=== PATIENT | female | born 1970 | race Caucasian/White ===

== ENCOUNTER 2018-12-26 06:07 | Observation (INO) ==
[~2018-12-26 06:07] MED LIST: LIDOCAINE W/ SODIUM BICARB 0.5 ML SYR ONE; LIDOCAINE W/ SODIUM BICARB 0.5 ML SYR SUBD ONE; Lactated Ringers 1,000 ML PRIMARY IV ONE; Nasal Sanitizer POPSWAB ampule 3 AMP (Nozin) PREOP DOSE ENOS SCH; Sodium Chloride 0.9% 250 ML ONE; Vancomycin Inj 1gm vial ONE; ceFAZolin Inj 2gm (Premix) 2 GM/50 ML BAG IV ONE
[2018-12-26] MEDS ORDERED: fentaNYL Inj 250 MCG/5 ML VIAL ONE (06:25)
[2018-12-26] MEDS ORDERED: MIDAZOLAM 5 MG/1 ML ONE (06:25)
[2018-12-26] MEDS ORDERED: KETAMINE HCL 100 MG/2 ML SYRINGE IV ONE (06:26)
[2018-12-26] MEDS ORDERED: ROCURONIUM 10 MG/1 ML - 5 ML VIAL IVP ONE (06:26)
[2018-12-26] MEDS ORDERED: Sodium Chloride 0.9% vial 20 ML ONE (06:45)
[2018-12-26] MEDS ORDERED: BUPIVACAINE 0.25% W/ EPI - 10 ML VIAL ONE (06:45)
[2018-12-26] MEDS ORDERED: BACITRACIN 50,000 UNIT VIAL IRRIG ONE (06:46)
[2018-12-26] MEDS ORDERED: REMIFENTANIL HCL 2 MG VIAL IV ONE ×2 (06:47→10:59)
[2018-12-26] MEDS ORDERED: REMIFENTANIL 1 MG/1 ML IV ONE (06:47)
[2018-12-26] MEDS ORDERED: fentaNYL Inj 100 MCG/2 ML VIAL IVP PRN (06:57)
[2018-12-26] MEDS ORDERED: ATROPINE SULFATE 0.4 MG/1 ML VIAL IVP PRN (06:57)
[2018-12-26] MEDS ORDERED: LIDOCAINE W/ SODIUM BICARB 0.5 ML SYR SUBD PRN (06:57)
[2018-12-26] MEDS ORDERED: Prochlorperazine Edisylate Inj 10mg/2ml vial IVP PRN (06:57)
[2018-12-26] MEDS ORDERED: ONDANSETRON 4 MG/2 ML VIAL IVP PRN ×2 (06:57→15:47)
[2018-12-26] MEDS ORDERED: Lactated Ringers 1,000 ML PRIMARY IV SCH (07:00)
[2018-12-26] MEDS ORDERED: DEXAMETHASONE PF 10 MG/1 ML VIAL ONE (07:48)
--- NOTE | 2018-12-26 10:40 | CRNA.PROGR ---
Anesthesia Time - Procedure/Recovery Time Start Date: 12/26/18 End Date: 12/26/18 Anesthesia : Time In: 07:32 Anesthesia : Time Out: 13:25 Anesthesia : Total Time: 353 - Total Anesthesia Time Total Anesthesia Time (minutes): 353 - Other Weight: 88.269 kg Height: 5 ft 2 in Body Mass Index (BMI): 35.6 Physical Status: P2 Anesthesia Type: General Anesthesia : ET (TIVA with NIMS monitoring.)
--- NOTE | 2018-12-26 10:40 | CRNA.PROGR ---
Anesthesia Recovery Phase I - Post Anesthesia Evaluation Patient's Condition on Arrival in Phase I: Stable Patient's Condition on Arrival in Phase II: Stable Pain Level: 7 (medicated for pain. Especially spasm type pain.)
--- NOTE | 2018-12-26 10:41 | CRNA.PROGR ---
Post Anesthesia Phase II - Post Anesthesia Phase II Patient Stable and Discharged To: Med/Surg Care Assumed By Surgeon: Jerrell Houser MD Temperature: 97.1 F Pulse Rate: 79 Respiratory Rate: 17 Blood Pressure: 123/85 Pulse Ox: 97 Total Leon Score at Discharge: 9 Post Anesthesia Discharge Criteria Met: Yes
[2018-12-26] MEDS ORDERED: TRANEXAMIC ACID 1,000 MG / 10 ML VIAL ONE (10:45)
[2018-12-26] MEDS ORDERED: Lactated Ringers 1,000 ML PRIMARY IV ONE ×2 (10:49→13:30)
[2018-12-26] MEDS ORDERED: HYDROmorphone 2 MG/1 ML ONE ×2 (13:33→13:41)
[2018-12-26] MEDS: HYDROmorphone 2 MG/1 ML IVP PRN ×4 (13:35→13:53)
[2018-12-26] MEDS: DIAZEPAM 10 MG/2 ML (5 MG/1 ML) CARPUJECT IVP PRN ×2 (13:42→13:55)
[2018-12-26] MEDS ORDERED: DIAZEPAM 10 MG/2 ML (5 MG/1 ML) CARPUJECT ONE (13:42)
[2018-12-26] MEDS ORDERED: LIDOCAINE HCL 2 % 10 ML JELLY URO-JECT TOPICAL PRN (14:29)
[2018-12-26] MEDS ORDERED: METOPROLOL TARTRATE 5 MG/5 ML VIAL ONE (14:58)
[2018-12-26] MEDS ORDERED: METOPROLOL TARTRATE 5 MG/5 ML VIAL IVP ONE ×2 (14:58)
[2018-12-26] MEDS: METOPROLOL TARTRATE 5 MG/5 ML VIAL IVP PRN ×3 (15:00→15:21)
[2018-12-26] MEDS ORDERED: MORPHINE SULFATE 2 MG/1 ML IVP PRN (15:47)
[2018-12-26] MEDS ORDERED: MAGNESIUM CITRATE 296 ML SOLUTION PO PRN (15:47)
[2018-12-26] MEDS ORDERED: Vancomycin-PHA to Dose IV SCH (15:47)
[2018-12-26] MEDS ORDERED: DOCUSATE 100 MG CAPSULE PO PRN (15:47)
[2018-12-26] MEDS ORDERED: ACETAMINOPHEN 325 MG TABLET PO PRN (15:47)
[2018-12-26] MEDS ORDERED: Fleet Enema 133ml RECTAL PRN (15:47)
[2018-12-26] MEDS ORDERED: DIAZEPAM 10 MG/2 ML (5 MG/1 ML) CARPUJECT IVP PRN (15:47)
[2018-12-26] MEDS ORDERED: MAGNESIUM 400 MG/5 ML - 30 ML (MILK OF MAGNESIA) PO PRN (15:47)
[2018-12-26] MEDS ORDERED: BISACODYL 5 MG TABLET PO PRN (15:47)
[2018-12-26] MEDS ORDERED: oxyCODONE/APAP 7.5/325 Tab 1 TAB TAB PO PRN (15:47)
[2018-12-26] MEDS ORDERED: oxyCODONE-ACETAMINOPHEN 5-325 TAB PO PRN (15:47)
[2018-12-26] MEDS ORDERED: MORPHINE SULFATE 4 MG/1 ML IVP PRN (15:47)
[2018-12-26] MEDS: ceFAZolin Inj 1 GM in Sodium Chloride 0.9% 100 ML IV SCH (16:35)
--- NOTE | 2018-12-26 18:05 | GEN.OPNOTE ---
Operative Note Surgery Date: 12/26/18 Preoperative Diagnosis: 1. Neck pain. 2. Bilateral upper extremity symptoms. 3. Multilevel cervical degenerative disc disease moderate C4-5, early advanced C5-6 and C6-7. 4. Multilevel cervical spondylosis mild to moderate in degree. 5. Small to moderate central C4-5 disc protrusion. 6. Prominent C5-6 disc protrusion producing moderate central canal and mild to moderate bilateral neural foraminal stenosis. 7. Prominent diffuse disc protrusion C6-7 with super imposed right paracentral herniated nucleus pulposus producing complete effacement of the CSF signal. anterior to the right hemicord with posterior displacement of the cord and impingement of the right ventral aspect of the cord with moderate bilateral. neural foraminal stenosis at this level. 8. Mild anterolisthesis C4 on C5 with mild kyphotic angulation at this level and a posterior osteophyte along the posterior superior C5 endplate. 9. Mild anterolisthesis of C5 and C6. Postoperative Diagnosis: 1. Neck pain. 2. Bilateral upper extremity symptoms. 3. Multilevel cervical degenerative disc disease moderate C4-5, early advanced C5-6 and C6-7. 4. Multilevel cervical spondylosis mild to moderate in degree. 5. Small to moderate central C4-5 disc protrusion. 6. Prominent C5-6 disc protrusion producing moderate central canal and mild to moderate bilateral neural foraminal stenosis. 7. Prominent diffuse disc protrusion C6-7 with super imposed right paracentral herniated nucleus pulposus producing complete effacement of the CSF signal. anterior to the right hemicord with posterior displacement of the cord and impingement of the right ventral aspect of the cord with moderate bilateral. neural foraminal stenosis at this level. 8. Mild anterolisthesis C4 on C5 with mild kyphotic angulation at this level and a posterior osteophyte along the posterior superior C5 endplate. 9. Mild anterolisthesis of C5 and C6. Procedure: 1.) Arthrodesis, anterior cervical, with discectomy, osteophytectomy, and foraminotomies bilaterally with removal of the posterior longitudinal ligament, and disc space preparation for fusion of the interspace, C4-5. (CPT code: 07916). 2.) Arthrodesis, anterior cervical, with discectomy, osteophyt ectomy and foraminotomies bilaterally with removal of the posterior longitudinal ligament with decompression of central canal and bilateral neuroforaminal stenosis and disc space preparation for fusion of the interspace, C5-6. (CPT code: 96305). 3.) Arthrodesis, anterior cervical, with discectomy, osteophytectomy and foraminotomies bilaterally with removal of the posterior longitudinal ligament with decompression of central canal and bilateral neuroforaminal stenosis and disc space preparation for fusion of the interspace, C6-7. (CPT code: 86870). 4.) Insertion of a 7mm x 14mm x 17mm 6-degree lordotic Exeter Tritanium C titanium anterior cervical cage filled in the center with Exeter BIO DBM Putty (allograft) into the C4-5 interspace for fusion of the C4-5 interspace. (CPT code: 42128). 5.) Insertion of a 7mm x 14mm x 17mm 6-degree lordotic Lauren Tritanium C titanium anterior cervical cage filled in the center with Exeter BIO DBM Putty (allograft) into the C5-6 interspace for fusion of the C5-6 interspace. (CPT code: 85314). 6.) Insertion of a 7mm x 14mm x 17mm 6-degree lordotic Exeter Tritanium C titanium anterior cervical cage filled in the center with Exeter BIO DBM Putty (allograft) into the C6-7 interspace for fusion of the C6-7 interspace. (CPT code: 47037). 7.) Anterior cervical plating, C4-7 using a 3 level, 8 hole, 48 mm Lauren Aviator titanium anterior cervical plate affixed to the C4 vertebral body with 4.0 mm x 16 mm variable angle titanium anterior cervical screws, to the C5 vertebral body using 4.0 mm x 14 mm variable angle titanium anterior cervical screws, to the C6 vertebral body using a 4.0 mm x 14 mm variable angle titanium anterior cervical screws, and to the C7 vertebral body using 4.0 mm x 16 mm fixed angle titanium anterior cervical screws. (CPT code: 06040). 8.) Use of 2.5cc of Lauren BIO DBM Putty (allograft) for filling of the anterior cervical cages (implanted allograft). (CPT code: 85756). 9.) Use of the operative microscope for the microsurgical techniques used for the C3-4, C4-5, and C5-6 discectomies and foraminotomies. (CPT code: 02201). 10.) Use of intra-operative fluoroscopy for location of the correct surgical levels and for confirmation of the final position of the intervertebral cages and final confirmation of the position of the anterior cervical hardware elements. 11.) Use of intra-operative neuromonitoring including EMG's, SSEP's, and MEP's. Surgeon: Jerrell Houser MD Social Work Supervisor: NEMESIO Jiménez Anesthesia Provider: Sahra Cornell CRNA Anesthesia Type: General Estimated Blood Loss (mL): 100 Fluids: See anesthesia record Pathology: None Indications: Ms. Benton is a very pleasant 48 year old woman who was referred to my practice by Gertrude Rudd for neck pain. Ms. Benton has neck pain and bilateral arm pain, especially in her elbows. Her arms feel weak and her hands go numb when writing. She has frequent headaches and a decreased range of motion in her neck. Ms. Benton had an MRI scan of the cervical spine demonstrating multilevel cervical degenerative disc disease moderate at C4-5, early advanced at C5-6 and C-7 and multilevel cervical spondylosis. The study demonstrated a small to moderate central C4-5 disc protrusion, a prominent C5-6 disc protrusion producing moderate central canal and mild to moderate bilateral neural foraminal stenosis, and a prominent diffuse disc protrusion C6-7 with super imposed right paracentral herniated nucleus pulposus producing complete effacement of the CSF signal anterior to the right hemicord with posterior displacement of the cord and impingement of the right ventral aspect of the cord with moderate bilateral neural foraminal stenosis at this level. The study demonstrated mild anterolisthesis C4 on C5 with mild kyphotic angulation at this level and a posterior osteophyte along the posterior superior C5 endplate and mild anterolisthesis of C5 and C6. Ms. Benton did not receive any benefit from non-operative therapies. We had discussed proceeding with a C4-5, C5-6, and C6-7 anterior cervical discectomy and fusion. She presents today for that surgical procedure. Findings: 1.) Diffuse disc/osteophyte complexes, C4-5, C5-6, C6-7. 2.) Central canal stenosis C5-6 and C6-7. 3.) Large right paracentral C6-7 herniated nucleus propulsis. Complications: None Operative Summary: Ms. Benton was met in the preoperative area. Her surgical history and physical in her chart was reviewed. We reviewed the procedure to be performed and we were in agreement on the procedure to be performed and this matched what was written on the patient's consent form. Any questions that Ms. Benton had were answered before he was taken back to the operating room suite. Mr. Benton was brought back to the operating room suite. She was moved over onto the surgical bed in supine position. General anesthesia was induced by the anesthesia staff and she was intubated. A Ash catheter was placed in her bladder for the procedure. She had pneumatic compression hose placed on her lower legs bilaterally. Her head was placed on a gel ring and rolled up surgical towels were placed in the intrascapular area and under her shoulders bilaterally. Her arms were gently tucked at her sides. All bony prominences were well padded. Her Ash catheter was checked to be free from kinks. Her pneumatic compression hose were attached to a pneumatic compression devise. The C-arm fluoroscopy unit was used to help localize the skin incision for the approach to the intended surgical level. The skin was marked along the medial border of the sternocleidomastoid muscle with a skin marker. Ms. Benton was prepped and draped in the usual and standard fashion. She was given 2 g of Ancef and a gram of vancomycin IV for perioperative antibiosis. She was given 10 mg of Decadron IV. A standard surgical timeout was performed identifying the correct patient, the correct procedure, and the correct equipment being available for the procedure. The intended skin incision was injected subcutaneously with quarter percent Marcaine with 1 in 200,000 epinephrine. The skin was incised with a 10 blade scalpel and all dermal and superficial bleeding points controlled with bipolar cautery. Dissection was continued down through the subcutaneous tissue to the level of the platysma muscle. The platysma muscle was incised with the Metzenbaum scissors in the direction of the skin incision. This allowed identification the medial border of the sternocleidomastoid muscle. Further dissection identified the omohyoid muscle which was circumferentially dissected out, tagged with two 0-Silk suture and then cut with a Metzenbaum scissors with the muscle stumps retracted with snaps attached to the sutures. Continued dissection was performed medial to the sternocleidomastoid muscle in both a sharp and blunt fashion down to the pre- vertebral fascia. The carotid artery was palpated to be lateral to the dissection plane. Cloward hand-held retractors were used to retract and protect the soft tissues while the prevertebral fascia was dissected with a Kitner instrument. Once a disc space became exposed a bent spinal needle was placed into the disc space and the level was localized as the C5-6 level with lateral fluoroscopy. Continued dissection of the prevertebral fascia was performed exposing the C4, C5, C6, and C7 vertebral bodies. The medial border of the longus coli muscle was dissected with Bovie cautery with insulated tip turned down to a low setting from C4-C7 bilaterally. The hand-held Cloward retractors were then replaced with the Marker Maker self-retaining retractor system which was first placed at the C4-5 level to expose this level and protect the soft tissues at this level. A 12 mm distraction pin was placed into the C4 vertebral body and another was placed into the C5 vertebral body. The operative microscope was brought into the surgical field and used for microsurgical techniques used for the C4-5 discectomy. An annulotomy was performed with a 15 blade scalpel and disc material was removed with a pituitary rongeur. Additional disc and cartilaginous endplate was loosened in the disc space using a small straight curette with the fragments being removed with a pituitary rongeur. The high-speed Connect Controls Thaddeus drill with a matchstick bit was used to perform arthrodesis/decortication of the C4 and C5 endplates preparing the endplates for fusion. The same drill with the same bit was used to drill away the prominent diffuse osteophytes along the posterior inferior aspect of the C4 vertebral body and the posterior superior aspect of C5 vertebral body as well as the uncovertebral joints bilaterally which were hypertrophied bilaterally. Foraminotomies were performed bilaterally with the same drill with same bit. A nerve hook was used to define the plane between the posterior longitudinal ligament and the dura. The posterior longitudinal ligament was completely removed with small Kerrison punches. The same instruments were used to extend the foraminotomies bilaterally that had been started with the high-speed drill with a matchstick bit. Excellent decompression of the spinal canal, neuroforamen, and exiting nerve roots was assured both by visual inspection as well as by palpation with a nerve hook underneath the vertebral bodies and out the neuroforamen bilaterally. The interspace was irrigated with bacitracin irrigation. FloSeal hemostatic agent was placed over all exposed dural elements. The interspace was sized the appropriate size anterior cervical cage. A 7 mm x 14 mm x 17 mm 6-degree lordotic Tritanium C titanium anterior cervical cage was selected and filled in the center with Lauren BIO DBM Putty (allograft) and then inserted into the C4-5 interspace with the certified novell administrator. The cage was gently countersunk with a bone tamp and mallet. The cage obtained good purchase between the C4 and C5 endplates. The final position of the cage was confirmed with lateral fluoroscopy. The C4 [place] distraction pin was removed and bony bleeding was controlled with FloSeal and a surgical lavon. The Marker Maker self-retaining retractor system was removed and placed across the C5-6 level for the exposure this level and the protection of the soft tissues at this level. The [place] distraction pin was placed into the C6 vertebral body. The operative microscope was used for this microsurgical techniques used for the C5-6 discectomy. An annulotomy was performed with a 15 blade scalpel and disc material was removed with a pituitary rongeur. Additional disc and cartilaginous endplate was loosened in the disc space using a small straight curette with the fragments being removed with a pituitary rongeur. The high- speed Connect Controls Thaddeus drill with a matchstick bit was used to perform arthrodesis/decortication of the C5 and C6 endplates preparing the endplates for fusion. The same drill with the same bit was used to drill away with diffuse, prominent osteophytes along the posterior inferior aspect of the C5 vertebral body and the posterior superior aspect of the C6 vertebral body as well as to drill away the uncovertebral joint hypertrophy bilaterally. The spinal cord was completely decompressed from the severe central canal stenosis at this level. Foraminotomies were performed bilaterally with the same drill with the same bit. A nerve hook was used to define the plane between the posterior longitudinal ligament and the dura. The posterior longitudinal ligament was completely removed with small Kerrison punches. The same instruments were used to extend the foraminotomies bilaterally that had been started with the high-speed drill with a matchstick bit. Excellent decompression of the spinal canal, neuroforamen, and exiting nerve roots was assured both by visual inspection as well as by palpation with a nerve hook underneath the vertebral bodies and out the neuroforamen bilaterally. The interspace was irrigated with bacitracin irrigation. FloSeal hemostatic agent was placed over all exposed dural elements. The interspace was sized the appropriate size anterior cervical cage. A 7 mm x 14 mm x 17 mm 6-degree Lauren Tritanium C titanium anterior cervical cage was selected and filled in the center with Lauren BIO DBM Putty (allograft) and then inserted into the C5-6 interspace with the certified novell administrator. The cage was gently countersunk with a bone tamp and mallet. The cage obtained good purchase between the C5 and C6 endplates. The final position of the cage was confirmed with lateral fluoroscopy. The C5 [place] distraction pin was removed and bony bleeding was controlled with FloSeal and a surgical lavon. The Marker Maker self-retaining retractor system was removed and placed across the C6-7 level for the exposure this level and the protection of the soft tissues at this level. The [place] distraction pin was placed into the C7 vertebral body. The operative microscope was used for this microsurgical techniques used for the C6-7 discectomy. An annulotomy was performed with a 15 blade scalpel and disc material was removed with a pituitary rongeur. The high-speed Connect Controls Thaddeus drill with a matchstick bit was used to perform arthrodesis/decortication of the C6 and C7 endplates preparing the endplates for fusion. The same drill bit were used to perform arthrodesis/decortication of the C6 and C7 endplates preparing the endplates for fusion. The same drill with the same bit was used to drill away with diffuse, very prominent osteophytes along the posterior inferior aspect of the C6 vertebral body and the posterior superior aspect of the C7 vertebral body as well as to drill away the uncovertebral joint hypertrophy bilaterally. The spinal cord was completely decompressed from the severe central canal stenosis at this level. Foraminotomies were performed bilaterally with the same drill with the same bit. A nerve hook was used to define the plane between the posterior longitudinal ligament and the dura. The posterior longitudinal ligament along with a right sided subligamentous disc hernniation was completely removed with small Kerrison punches. The same instruments were used to extend the foraminotomies bilaterally that had been started with the high-speed drill with a matchstick bit. Excellent decompression of the spinal canal, neuroforamen, and exiting nerve roots was assured both by visual inspection as well as by palpation with a nerve hook underneath the vertebral bodies and out the neuroforamen bilaterally. The interspace was irrigated with bacitracin irrigation. FloSeal hemostatic agent was placed over all exposed dural elements. The interspace was sized the appropriate size anterior cervical cage. A 7 mm x 14 mm x 17 mm 6-degree Exeter Tritanium C titanium anterior cervical cage was selected and filled in the center with Exeter BIO DBM Putty (allograft) and then inserted into the C6-7 interspace with the certified novell administrator. The cage was gently countersunk with a bone tamp and mallet. The cage obtained good purchase between the C6 and C7 endplates. The final position of the cage was confirmed with lateral fluoroscopy. The [place] distraction pins in the C6 and C7 vertebral bodies were removed. Bony bleeding was controlled FloSeal and surgical patties. The Marker Maker self- retaining retractor system was removed and placed in the center portion of the surgical dissection to provide the proper exposure needed for the instrumentation portion of the procedure. Any remaining C4, C5, C6, and C7 anterior osteophytes were removed with the large Le[place]ell rongeur as well as with the high speed drill with the matchstick bit. The appropriate size anterior cervical plate was selected both by visual inspection as well as by lateral fluoroscopy. A 3 level, 8 hole, 48 mm Exeter Aviator titanium anterior cervical plate was selected and affixed to the C4 vertebral body using 4.0 mm x 16 mm variable angle titanium anterior cervical screws, and to the C5 and C6 vertebral bodies using 4.0 mm x 14 mm variable angle titanium anterior cervical screws, and to the C7 vertebral body using 4.0 mm x 16 mm fixed angle titanium anterior cervical screws. All screws obtained good purchase in the vertebral body bone. The locking mechanism was then deployed at each level and visual inspection confirmed that the locking mechanism deployed across each of the screw heads at each level bilaterally. The Marker Maker self-retaining retractor system was removed from the surgical site. Final AP and lateral fluoroscopic images were obtained. The glover of the dissection plane were inspected for any bleeding points. Any identified were coagulated with bipolar cautery. The surgical site was copious ly irrigated with bacitracin irrigation allowing the irrigant to sit to again inspect for any bleeding points with none identified. A medium MARJORIE drain was placed into the surgical site. The closure portion of the procedure was begun. The omohyoid muscle was re-approximated by the 0-Silk suture attached to the muscle stumps. The platysmal muscle was reapproximated with 3-0 Vicryl suture in an interrupted fashion. The dermis and superficial subcutaneous tissue was reapproximated with 3-0 Vicryl suture in an inverted interrupted fashion. The final layer of closure was performed with 4-0 Monocryl in a running subcuticular fashion. The incision was cleansed with a bacitracin soaked sponge and dried with a sterile dry sponge. Steri-Strips were placed across the incision. The incision was dressed with a Covaderm dressing. The surgical drain was secured with suture. The drain site was dressed. All surgical drapes removed from Ms. Benton. She was carefully moved over onto the PACU stretcher. She was awoken and extubated by the anesthesia staff. She was taken to the recovery room in stable condition. All surgical counts reported as correct by the scrub and circulating personnel. A physicians property assistant, Ms. Karin Mcclure PA-C, assisted with the procedure including the exposure and closure portions of the procedure. She also provided irrigation and suctioning throughout the procedure.
--- NOTE | 2018-12-26 18:56 | PDOC ---
HPI - History of Present Illness Date of Service: 12/26/18 Time of Service: 18:49 Chief Complaint: Neck pain with right shoulder and arm pain History of Present Illness: This very pleasant 48-year-old female who's had long-standing neck pain with right shoulder and arm pain. She is complained about this for several years. She had an MRI scan that apparently showed some spinal stenosis in the cervical spine along with disc bulging. When I read the reports, she had several findings of spondylosis, neural foraminal stenosis, and bulging disks. She essentially had a cervical radiculopathy, with right-sided symptoms worse than left, but bilateral symptoms. She presented today for anterior cervical discectomy fusion with Dr. Houser. See his surgical notes regarding procedure performed. Postoperatively, the patient denies any chest pain, shortness breath, nausea or vomiting. She states that she is normally on some levothyroxine for hypothyroidism, Effexor and an anti-anxiety medication, and a sleep aid. She states postoperatively that her right arm is numb below the elbow but she is able to move it in all directions. I spoke with neurosurgery about that and the plan to continue some Decadron. History is obtained from the patient and review of the medical record. Past Medical History Medical History: 1. Depression with anxiety. 2. Hypothyroidism. 3. Insomnia. 4. Chronic neck pain Surgical History: 1. Carpal tunnel release. 2. Tubal ligation. 3. Status post hysterectomy Pertinent Family History: Significant for diabetes. Past Social History: Patient does not smoke or drink alcohol. . Has children. Is in [place], [place]. Tobacco Use: Former Smoker Do you dip or chew tobacco: No In the Past 12 Months, Have Used or Abuse Any of the Following Substance: None Alcohol Use: None Medication / Allergies Home Medications: Home Medications Medication Instructions Recorded Confirmed Type clonidine HCl 0.1 mg tablet 0.1 mg PO BID #60 tab 10/23/18 12/26/18 Rx venlafaxine ER 75 mg 75 mg PO QDAY #30 cap 10/23/18 12/26/18 Rx capsule,extended release 24 hr estradiol 2 mg (7.5 mcg/24 hour) 1 vag ring VAGINAL Q90D #1 ea 11/11/18 12/26/18 Rx vaginal ring eszopiclone 2 mg tablet 2 mg PO QHS #30 tab 11/11/18 12/26/18 Rx cyclobenzaprine 10 mg tablet 10 mg PO TID PRN #30 tab 12/02/18 12/26/18 Rx levothyroxine 50 mcg tablet 50 mcg PO QDAY #30 tab 12/24/18 12/26/18 Rx Allergies/Adverse Reactions: Allergies Allergy/AdvReac Type Severity Reaction Status Date / Time hydrocodone AdvReac Severe NAUSEA Verified 12/26/18 06:28 vortioxetine AdvReac Severe Other : Verified 12/26/18 06:28 [From Lindsey Shell] See Comment ZYTHROMAX Allergy Mild HIVES Uncoded 12/26/18 06:28 Review of Systems - Respiratory Respiratory: REPORTS: Negative System Review - Cardiovascular Cardiovascular: REPORTS: Negative System Review - Gastrointestinal Gastrointestinal / Abdominal: REPORTS: Negative System Review Exam - Vitals Vital Signs: Vital Signs Temperature 97 F Temperature Source Temporal Artery Scan Pulse Rate [Pulse Oximeter] 119 Pulse Rate 135 Respiratory Rate 18 Blood Pressure [Right Arm] 128/90 Blood Pressure 135/86 Pulse Ox 98 Oxygen Flow Rate 1 Oxygen Delivery Method Nasal Cannula Height 5 ft 2 in Weight 194 lb 9.6 oz - General General Appearance: No Acute Distress, Cooperative - Head Head Exam: Normal Inspection, Normocephalic, Atraumatic - Eye Eye Exam: POSITIVE: No Scleral Icterus - Neck Additional Neck Exam Details: Has has been collar in place. Bandage in place and drain is noted. Bandage is clean, dry, intact. - Respiratory Respiratory Exam: POSITIVE: Clear to Auscultation - Bilaterally, Breathing Non Labored - Cardiovascular Cardiovascular Exam: POSITIVE: No Murmur, No Clicks, No Gallops, No Rubs, Tachycardia, No JVD - GI/Abdominal GI/Abdominal Exam: POSITIVE: Normal Bowel Sounds, Non Tender, Non Distended, Soft - Extremities Extremities Exam: POSITIVE: No Edema Present - Neurological Neurological Exam: POSITIVE: Alert, Oriented x 3, No Facial Droop, Speech Intact / Clear, Moves All Extremities Equally Results - Labs Additional Lab Results: 02/19/12 10/23/18 12/22/18 10:11 12:07 13:39 WBC 9.64 Hgb 14.1 RDW 12.7 Plt Count 261 PT INR Sodium Potassium Chloride Carbon Dioxide Anion Gap BUN Creatinine Estimated GFR BUN/Creatinine Ratio Glucose Uric Acid 6.2 Calcium Total Bilirubin AST ALT Alkaline Phosphatase Total Protein Albumin Globulin Albumin/Globulin Ratio TSH 12/22/18 12/22/18 12/23/18 13:39 13:39 09:48 WBC Hgb RDW Plt Count PT 10.3 INR 1.01 Sodium 137 Potassium 4.5 Chloride 101 Carbon Dioxide 27 Anion Gap 9 BUN 17 Creatinine 0.7 Estimated GFR > 60 BUN/Creatinine Ratio 24.28 H Glucose 103 Uric Acid Calcium 9.5 Total Bilirubin 0.4 AST 48 H ALT 52 Alkaline Phosphatase 73 Total Protein 7.5 Albumin 4.3 Globulin 3.2 Albumin/Globulin Ratio 1.30 TSH 0.432 Assessment and Plan - Patient Problems (1) Hypothyroidism Current Visit: Yes Status: Chronic Code(s): E03.9 - Hypothyroidism, unspecified Qualifiers: Hypothyroidism type: acquired Qualified Code(s): E03.9 - Hypothyroidism, unspecified (2) Depression Current Visit: Yes Status: Chronic Code(s): F32.9 - Major depressive disorder, single episode, unspecified Qualifiers: Depression Type: major depressive disorder Major depression recurrence: recurrent Active/Remission status: in full remission Qualified Code(s): F33.42 - Major depressive disorder, recurrent, in full remission (3) Cervical radicular pain Current Visit: Yes Status: Acute Code(s): M54.12 - Radiculopathy, cervical r egion - Assessment / Plan Additional Assessment/Plan Details: At this point I would recommend continuing levothyroxine, Lunesta, Effexor and clonidine. I discussed the patient's complaint of right arm numbness with neurosurgery, and they will address. Thank you for this consult. He'll be our pleasure to assist in the care of this patient during the hospital stay. Her TSH noted on 12/22/2018 to be in normal range, low normal value, as per primary provider, Aleja Rudd, whom the patient can see in the next 6 weeks or so to review.
--- NOTE | 2018-12-26 18:58 | NEURO.PROG ---
Subjective Post Op Day: 0 Pain Management: PO Ash Catheter: Yes Diet: Regular Additional Details: Awake and alert on med/surg floor. Neck - flat/soft. Dressing - clean/dry/intact. Posterior neck/intrascapular pain. Right lower arm and right hand numb. 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 Easily raises arms to put hands on head bilaterally and straight up in the air over her head bilaterally. PLAN: 1.) Decadron 4 mg IV q6h x 3 doses. 2.) Continue post-operative antibiotics. 3.) Continue post-operative pain control. 4.) Mobilize. Objective : Data - Vital Signs Vital Signs and I&O: Vital Signs - Last Taken Temperature 97 F 12/26/18 18:21 Pulse Rate 119 H 12/26/18 18:21 Respiratory Rate 18 12/26/18 18:21 Blood Pressure 128/90 12/26/18 18:21 Pulse Ox 98 12/26/18 18:21 Intake and Output (24hr x 4 totals) 12/24/18 12/25/18 12/26/18 12/27/18 05:59 05:59 05:59 05:59 Intake Total 1999 / 1999 Output Total 976 / 976 Balance 1024 / 1024
[2018-12-26] MEDS: CloNIDine Tab 0.1 MG TABLET PO SCH (20:56)
[2018-12-26] MEDS ORDERED: ESZOPICLONE 2 MG PO SCH (21:00)
[2018-12-26] MEDS ORDERED: VENLAFAXINE XR 75 MG CAP PO SCH (21:00)
[2018-12-27] MEDS: ceFAZolin Inj 1 GM in Sodium Chloride 0.9% 100 ML IV SCH (00:51)
[2018-12-27] MEDS: oxyCODONE/APAP 10/325 Tab 1 EACH TAB PO PRN ×2 (00:52→08:54)
[2018-12-27 05:08] LABS: BASOPHILS # (AUTO) 0 10*3/UL; BASOPHILS % (AUTO) 0 % (0-1); EOSINOPHILS # (AUTO) 0 10*3/UL; EOSINOPHILS % (AUTO) 0 % (0-8); Hematocrit [HCT] 38.5 % (37.0-47.0); LYMPHOCYTES # (AUTO) 1.66 10*3/uL; MEAN CORPUSCULAR HEMOGLOBIN 29.1 PG (27-31); MEAN CORPUSCULAR HGB CONC 33.8 g/dL (33-37); MEAN CORPUSCULAR VOLUME 86.1 FL (81-99); MEAN PLATELET VOLUME 10.4 FL (7.4-12.2); MONOCYTES # (AUTO) 0.48 10*3/UL (0.3-0.8); MONOCYTES % (AUTO) 2.8 % (5-15); NEUTROPHILS # (AUTO) 14.72 10*3/UL; NEUTROPHILS % (AUTO) 87.2 % (50-80); RED BLOOD COUNT 4.47 10^6/uL (4.20-5.40)
[2018-12-27 05:24] LABS: BLOOD UREA NITROGEN 11 mg/dL (7-22)
[2018-12-27 05:26] LABS: PLATELET MORPHOLOGY COMMENT NORMAL MORPHOLOGY (NORM); RBC MORPHOLOGY COMMENT NORMAL MORPHOLOGY (NORM); WBC MORPHOLOGY COMMENT NORMAL MORPHOLOGY (NORM)
[2018-12-27] MEDS ORDERED: LEVOTHYROXINE 50 MCG TABLET PO SCH (05:30)
[2018-12-27] MEDS ORDERED: PANTOPRAZOLE 40 MG TABLET PO SCH (07:00)
--- NOTE | 2018-12-27 07:47 | NEURO.PROG ---
Subjective Post Op Day: 1 Pain Management: PO Ash Catheter: No Flatus: Yes Diet: Regular Ambulating: Yes Additional Details: Awake and alert. Neck - soft/flat. Incision - clean/dry/intact. Right arm and hand less numb, states feeling coming back. Full strength all major muscle groups of the upper extremities bilaterally including rn admit, biceps, triceps, and deltoids. Can easily raise arms and put hands on head (which she stated pre-operatively she could not do secondary to pain). WBC count - 16,000 (potentially partially due to demargination of the WBC's from steroids); sediment in urine; history of previous urinary tract infections. PLAN: 1.) Discharge to home. 2.) Discharge on course of prophylactic antibiotics for possible urinary tract infection. Objective : Data - Labs CBC and BMP: 12/27/18 04:31 12/27/18 04:31 - Vital Signs Vital Signs and I&O: Vital Signs - Last Taken Temperature 97.7 F 12/27/18 04:24 Pulse Rate 83 12/27/18 04:24 Respiratory Rate 20 12/27/18 07:33 Blood Pressure 122/64 12/27/18 04:24 Pulse Ox 95 12/27/18 04:29 Intake and Output (24hr x 4 totals) 12/25/18 12/26/18 12/27/18 12/28/18 05:59 05:59 05:59 05:59 Intake Total 3697 / 3697 Output Total 1016 / 1016 Balance 2681 / 2681
--- NOTE | 2018-12-27 08:21 | NEURO.PROG ---
Subjective Post Op Day: 1 Pain Management: PO Jarquin Catheter: No Diet: Regular Ambulating: Yes Additional Details: Velvet is awake and alert, moving all extremities. She has good bilateral arm strength and improving spinning bath patroller strength in the right hand. She states the numbness in her right hand is improving. She is afebrile. Her incision is dry and intact. Her hemovac drainage was 60ml in 12 hours and only minimal in the last 3 hour. Plan is to discontinue her drain. She wants to go home. Of note is her WBC of 16.89, which is possibly reflective of demargination from her Decadron. Her Preoperative urinalysis was negative, but given her history of UTIs and some particulate matter noted in her jarquin post operative, we will cover her with 5 days of Bactrim DS. I also told her to follow up with Dr. Houser or Dr. Live if any urinary tract symptoms persist in 5 days. She was given post op instructions regarding activity and incision care. She will follow up in Dr. Houser's office in 2 weeks. Objective : Data - Labs CBC and BMP: 12/27/18 04:31 12/27/18 04:31 - Vital Signs Vital Signs and I&O: Vital Signs - Last Taken Temperature 97.7 F 12/27/18 04:24 Pulse Rate 83 12/27/18 04:24 Respiratory Rate 20 12/27/18 07:33 Blood Pressure 122/64 12/27/18 04:24 Pulse Ox 95 12/27/18 04:29 Intake and Output (24hr x 4 totals) 12/25/18 12/26/18 12/27/18 12/28/18 05:59 05:59 05:59 05:59 Intake Total 3697 / 3697 Output Total 1016 / 1016 Balance 2681 / 2681
[2018-12-27 08:52] VITALS: BP 118/71; RESP 16; TEMP 97.8; O2SAT 97
[2018-12-27] MEDS: CloNIDine Tab 0.1 MG TABLET PO SCH (08:53)
[2018-12-27] MEDS ORDERED: VENLAFAXINE XR 75 MG CAP PO SCH (09:00)
[2018-12-27] MEDS ORDERED: SULFAMETHOXAZOLE/TRIMETHOPRIM 800/160 MG TABLET PO SCH (09:00)
--- NOTE | 2018-12-27 09:57 | CRNA.PROGR ---
Anesthesia Note - Progress Notes Anesthesia Progress Note: Up walking in hallway with PT this am. wearing neck brace. Reports hand is still numb. No nausea. Ash is out. Pain under control. She's cheerful and mentation is clear and apropriate. No apparent anesthetic difficulties.
--- NOTE | 2018-12-27 10:49 | DCSUMMARY ---
Hospitalization Summary Admit Date: 12/26/2018 Discharge Date: 12/27/18 Primary Diagnosis:: cervical radiculopathy status post surgery Hospital Course: This very pleasant 48-year-old female that had a cervical radiculopathy and she had surgery with Dr. Houser. See his notes regarding the procedure performed. Hospital service was consulted to address hypothyroidism amongst other medical issues. Home medications were resumed. The patient did very well from a pain control standpoint. She did have to go on Decadron as she had some numbness in her right arm but her numbness was resolving the next day and she had outstanding movement in her arms bilaterally with normal muscle strength. The neurosurgery team felt that she was stable to discharge home from their perspective, and from the hospitalist perspective I told the patient to resume her home medications. The neurosurgery team is going to empirically treat what they think might be a urinary tract infection. Assessment and Plan: 1. As per discharge assessments noted 2. Disposition: Patient is discharged home. 3. Condition on discharge, stable and improved. 4. Diet: regular diet 5. Activities: Resume activities and restrictions as per neurosurgery instructions 6. Follow-Up: 1. Primary care provider as necessary 2. Neurosurgery for surgery follow-up 7. Medications at the Time of Discharge: Home Medications Medication Instructions Recorded Confirmed Type clonidine HCl 0.1 mg tablet 0.1 mg PO BID #60 tab 10/23/18 12/26/18 Rx venlafaxine ER 75 mg 75 mg PO QDAY #30 cap 10/23/18 12/26/18 Rx capsule,extended release 24 hr estradiol 2 mg (7.5 mcg/24 hour) 1 vag ring VAGINAL Q90D #1 ea 11/11/18 12/26/18 Rx vaginal ring eszopiclone 2 mg tablet 2 mg PO QHS #30 tab 11/11/18 12/26/18 Rx levothyroxine 50 mcg tablet 50 mcg PO QDAY #30 tab 12/24/18 12/26/18 Rx Cyclobenzaprine HCl [Flexeril] 10 mg PO TID PRN #30 tab 12/27/18 Rx oxyCODONE/APAP 10/325 Tab 1 ea PO Q6H PRN #60 tab 12/27/18 Rx [Percocet 10/325 Tab] Exam - Vitals Vital Signs: Vital Signs Temperature 97.8 F Temperature Source Temporal Artery Scan Pulse Rate [Pulse Oximeter] 84 Pulse Rate 135 Respiratory Rate 16 Blood Pressure [Right Arm] 118/71 Blood Pressure 135/86 Pulse Ox 97 Oxygen Flow Rate 1 Oxygen Delivery Method Room Air Height 5 ft 2 in Weight 194 lb 9.6 oz - General General Appearance: No Acute Distress, Cooperative - Neck Additional Neck Exam Details: [place] collar in place. - Neurological Neurological Exam: POSITIVE: Alert, Oriented x 3, Normal Gait, No Facial Droop, Speech Intact / Clear, Moves All Extremities Equally Data Peritnent Studies: Laboratory Results 12/27/18 12/27/18 04:31 04:31 WBC 16.89 H RBC 4.47 Hgb 13.0 Hct 38.5 MCV 86.1 MCH 29.1 MCHC 33.8 RDW Std Deviation 39.8 RDW Coeff of Semaj 12.8 Plt Count 263 MPV 10.4 Immature Gran % (Auto) 0.2 Neut % (Auto) 87.2 H Lymph % (Auto) 9.8 L Towner % (Auto) 2.8 L Eos % (Auto) 0 Baso % (Auto) 0 Immature Gran # (Auto) 0.03 Neut # (Auto) 14.72 Lymph # (Auto) 1.66 Towner # (Auto) 0.48 Eos # (Auto) 0 Baso # (Auto) 0 WBC Morphology Comment Normal morphology Plt Morphology Comment Normal morphology RBC Morph Comment Normal morphology Sodium 137 Potassium 4.4 Chloride 105 Carbon Dioxide 24 Anion Gap 8 BUN 11 Creatinine 0.5 Estimated GFR > 60 BUN/Creatinine Ratio 22.00 H Glucose 149 H Calculated Osmolality 285.0 Calcium 9.1 White blood cell count is related to steroids. I agree with the margination. Patient Problems - Patient Problem List (1) History of neck surgery Status: Acute Code(s): Z98.890 - Other specified postprocedural states Category: Surgical (2) Hypothyroidism Status: Chronic Code(s): E03.9 - Hypothyroidism, unspecified Qualifiers: Hypothyroidism type: acquired Qualified Code(s): E03.9 - Hypothyroidism, unspecified Category: Medical (3) Depression Status: Chronic Code(s): F32.9 - Major depressive disorder, single episode, unspecified Qualifiers: Depression Type: major depressive disorder Major depression recurrence: recurrent Active/Remission status: in full remission Qualified Code(s): F33.42 - Major depressive disorder, recurrent, in full remission Category: Medical (4) Cervical radicular pain Status: Acute Code(s): M54.12 - Radiculopathy, cervical region Category: Medical
--- NOTE | 2018-12-29 12:51 | OTI REPORT ---
Thank you for the referral of Velvet Benton. She was seen on 12/27/18 for an occupational therapy inpatient evaluation status post cervical fusion. SUBJECTIVE: The patient is a 48-year-old female who is being seen post op cervical fusion this morning. The patient reports that she lives in [place], [place]. She reports minimal pain this morning. She just had her pain pills and they are kicking in. The patient lives at home with her and daughter. Her daughter is able to be home during the day to assist with tasks if needed. The patient does not have any stairs to enter the home. Within the home she does have a slight incline but no stairs. PAST MEDICAL HISTORY: Past medical history can be found in the patient's medical record. OBJECTIVE FINDINGS: General observations: The patient was educated in cervical precautions. The patient demonstrated the ability to don and doff her neck brace independently. Activities of daily living: The patient completed upper extremity dressing tasks with set up assistance and lower extremity dressing tasks with set up assistance without the use of assistive devices. The patient did report that she would like a time clock mechanic at home so she has assistance when she drops things on the floor as she will not be able to see when she is wearing her neck brace. Sock aide is not necessary at this time as the patient demonstrated the ability to complete dressing without assistance. Ambulation: The patient ambulated x86 feet around the nurse's station with contact guard assist for safety while wearing her neck brace. No difficulty or loss of balance was noted with ambulation. The patient ascended and descended 5 stairs with handrails for safety and verbal cues due to a lack of vision secondary to the neck brace. ASSESSMENT: Problem List: Decreased ability to complete upper and lower extremity dressing following neck precautions Decreased functional mobility Occupational Therapy Goals: To be met by discharge from inpatient: Patient will demonstrate the ability to complete upper and lower extremity dressing tasks independently. Patient will complete functional mobility tasks independently with no losses of balance. Patient will demonstrate compliance with neck precautions. TREATMENT PLAN: Goals have been met at this time and the patient will be discharged to home. INITIAL TREATMENT: Treatment today consisted of the initial evaluation activities only. Following treatment the patient returned to her room and was left in chair with call light within reach, chair alarm set, and bedside table in place. BE
== END 2018-12-27 09:51 | disposition home or self-care (01) ==
LOC: OR 06:07 → MED/SURG 06:07
PROVIDERS: ADMIT Neurological Surgery; ATTEND Neurological Surgery